=== PATIENT | male | born 1950 | race Caucasian/White ===

== ENCOUNTER 2018-08-17 14:36 | Outpatient (CLI) | payer MEDICARE, OTHER ==
--- NOTE | 2018-08-17 15:37 | RAD ---
THREE VIEWS LEFT FOOT: Comparison: None. History: Fifth metatarsal fracture. Kicked a door two weeks ago. FINDINGS: Three views of the left foot shows no evidence of acute fracture or dislocation. A small radiopaque f oreign body is seen adjacent to the fifth metatarsal. Mild soft tissue swelling is seen. IMPRESSION: Radiopaque foreign body in the soft tissues adjacent to the fifth metatarsal. POS: CET
== END 2018-08-17 14:37 | disposition home or self-care (01) ==
LOC: BICRAD 14:36
PROVIDERS: ATTEND Chiropractor
DX: S92.352A Displaced fracture of fifth metatarsal bone, left foot, initial encounter for closed fracture (principal); S90.455A Superficial foreign body, left lesser toe(s), initial encounter